=== PATIENT | female | born 1980 | race Caucasian/White ===

== ENCOUNTER 2021-01-05 09:00 | Outpatient (RCR) | payer BC, SELFPAY ==
[2020-12-14 13:20] VITALS: BMI 37.0
--- NOTE | 2020-12-14 13:49 | PC.NURSE ---
Patient is a 40 year old female who self referred to the [facility] program as she reports attending the program in 2018 and found it helpful. She is struggling with depression with passive SI, increased anxiety, and PTSD sxs. She reports she has low motivation at work and is unable to focus. She was recently disciplined at work regarding her performance. Patient does have a hx of trauma. She presents with depressed mood, blunted affect. Reports passive SI, denied plan or intent to harm of kill herself. Asked who she could call if she felt unsafe and patient stated her therapist, a friend, or crisis. Patient gave verbal permission to email her a cope of her safety plan. Patient medications reconciled with patient and patient's pharmacy. She reports she sometimes forgets to take her medications d/t symptoms. Educated patient on ways she can remember to take her medication and the possible mental and physical side effects from missing her medications. Patient also stated that she has 1-2 drinks weekly or every 2 weeks and the last time was last night when she drank 2 beers. Patient also reports that prior to Covid she would go to bars with her friends and binge drink on the weekends until she blacked out. She stated she is not going to drink while attending the program and she was educated about the effects of mixing ETOH with her medications and the effects on her mental health. Patient also aware that is she needed additional support she could access online substance use groups.
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
--- NOTE | 2020-12-19 14:50 | HO.PHPPROGNO ---
Subjective Subjective Date of Service: 12/21/20 Reason For Visit: depression Interim History: Pt continues to report symptoms of depression. She denies suicidal or homicidal ideation. She reports it has been about one month and she does not seem to get better. She also reports poor concentration. She does note that poor concentration is in setting of increased depression,although questions if she had underlying attention problems. She has been on fluvox for about 1.5 months. She is currently on Fluvox 150mg po qhs, wonders if it has been an effective medication or not. We discussed either increasing Ability or looking into d/c one of the antidepressants as it does not appear to be effective current combination of medication. I did caution pt about adding medications to avoid polypharmacy. Medication Compliance: Yes Side effects from medications: No Attending Groups: Yes Mental Status Exam Mental Status Exam Patient Appearance: Appropriate Patient Orientation: Person, Place, Time and Situation Level of Consciousness: Awake and Alert Patient Behavior: Talkative, Cooperative, Anxious, Fatigued and Good Eye Contact Mood Description: Depressed and Anxious Affect Description: Flat Patient Cognition Impaired: No Ability to Follow Directions: Good Speech Pattern: Spontaneous Speech Memory Description: Intact Diagnostics Vital Signs (24Hr): Body Mass Index 37.0 Assessment & Plan Assessment & Plan (1) Recurrent major depression: Status: Acute Code(s): F33.9 - Major depressive disorder, recurrent, unspecified Assessment and Plan: 1. discussed that pt has been on flov for more than one month at therapeutic dose and efficacy is limited. 2. Obtain collateral information from OP psychiatrist. (2) PTSD (post-traumatic stress disorder): Status: Acute Code(s): F43.10 - Post-traumatic stress disorder, unspecified Certification I certify that partial hospital treatment is medically necessary due to the symptoms and problems resulting from the patient's mental illness and the failure to treat the patient at the partial hospital level of care would likely result in the patient requiring inpatient psychiatric care which could not be prevented at a less intensive level of care. Greater than 50% of the session was spent on counseling and/or coordination of care Discharge Plan Discharge Attending provider: Thee Burton Medications: New aripiprazole [Abilify] 5 mg tablet 5 mg PO BEDTIME 15 Days Qty: 15 RF: 0 Discontinued aripiprazole 2 mg Tablet 2 mg PO DAILY RF: 0 No Action fluvoxamine [Luvox] 100 mg Tablet See Rx Instructions .ROUTE .COMPLEX RF: 0 bupropion HCl 300 mg Tablet Extended Release 24 Hr 300 mg PO QAM RF: 0
--- NOTE | 2020-12-22 15:10 | PC.NURSE ---
The client requested to meet to discuss her discharge date because she needs to let work know when she will return we discussed discharging the week of the . She continues to struggle with severe anxiety and difficulty completing daily tasks.
--- NOTE | 2020-12-29 16:55 | HO.PHPPROGNO ---
Subjective Subjective Date of Service: 12/30/20 Reason For Visit: depression Interim History: Juliane reports distracted feelings today and for the past few days. Focus is difficult. Reports she and partner met with her therapist this week in preparation for couples therapy- I don't want to repeat old patterns in this relationship. Reports Abilify increase is going well and asks for a refill which is sent. Denies SE except to report her left eye was twitching for a brief time today. Sleep is reported as WNL however last night she reports poor quality/minimal time for sleep. Appetite is usual -follows [facility] mindfulness program which is very effective for her. Denies SI plan intent. Reports SIBS on Saturday-scratching her arm-partner was very supportive and offered assistance to help pt turn this around she states. Discussed concerns about returning to work and her lack of focus-would like to trial a stimulant. Encouraged pt to work with OP team as she will need longer than one week for a well supervised trial. Discussed work giving her a final warning and not understanding she was symptomatic. Discussed offering a note to validate PHP attendance/work-encouraged processing in group to prepare and manage her responsibilities. Medication Compliance: Yes Side effects from medications: Yes (L eye twitching briefly today) Attending Groups: Yes Review of Systems Psychiatric: Reports anxiety and Reports depression Mental Status Exam Mental Status Exam Patient Orientation: Person, Place, Time and Situation Level of Consciousness: Awake and Alert Patient Behavior: Appropriate Mood Description: Depressed Affect Description: Flat Patient Cognition Impaired: No Ability to Follow Directions: Good Speech Pattern: Spontaneous Speech Memory Description: Intact Hallucinations: None Delusions: Not Present Thought Process: Intact Thought Content: positive for Intact and positive for Circumstantial Depressive Symptoms: Increased Anxiety and Thoughts of /Suicide (denies SI, plan or intent) Judgement: Good Diagnostics Vital Signs (24Hr): Body Mass Index 37.0 Assessment & Plan Assessment & Plan (1) PTSD (post-traumatic stress disorder): Status: Acute Code(s): F43.10 - Post-traumatic stress disorder, unspecified (2) Recurrent major depression: Status: Acute Code(s): F33.9 - Major depressive disorder, recurrent, unspecified Assessment and Plan: -Continue current plan of care. Certification I certify that partial hospital treatment is medically necessary due to the symptoms and problems resulting from the patient's mental illness and the failure to treat the patient at the partial hospital level of care would likely result in the patient requiring inpatient psychiatric care which could not be prevented at a less intensive level of care. Greater than 50% of the session was spent on counseling and/or coordination of care Discharge Plan Discharge Attending provider: Thee Burton Medications: Continued aripiprazole [Abilify] 5 mg tablet 5 mg PO BEDTIME 15 Days Qty: 15 RF: 1 Discontinued aripiprazole 2 mg Tablet 2 mg PO DAILY RF: 0 No Action fluvoxamine [Luvox] 100 mg Tablet See Rx Instructions .ROUTE .COMPLEX RF: 0 bupropion HCl 300 mg Tablet Extended Release 24 Hr 300 mg PO QAM RF: 0 Telehealth Telehealth Location of provider rendering services: practice address Location of patient: address on file Patient Identification confirmed using: Name, : Yes Telehealth method: video Patient verbally consented to treatment: Yes Patient verbally consented to billing insurance company: Yes Patient informed of any privacy concerns related to visit: Yes Time spent with patient (mins): 15
--- NOTE | 2021-01-05 12:11 | HO.PHPPROGNO ---
Subjective Subjective Date of Service: 01/10/21 Reason For Visit: depression Interim History: Juliane reports overall feeling less depressed, less overwhelmed. She denies SI/HI. She is somewhat anxious about returning to work next week, but otherwise feeling stable. She reports new relationship of about one month has been uplifting for her. She reports sleep and appetite is good. She is taking medications as prescribed. No Side effects noted or reported. Review of Systems Review of Systems Yes all other systems are reviewed and are negative Psychiatric: Reports anxiety and Reports depression Mental Status Exam Mental Status Exam Patient Appearance: Appropriate Patient Orientation: Person, Place, Time and Situation Level of Consciousness: Awake and Alert Patient Behavior: Appropriate Mood Description: Depressed Affect Description: Flat Patient Cognition Impaired: No Ability to Follow Directions: Good Speech Pattern: Spontaneous Speech Memory Description: Intact Diagnostics Vital Signs (24Hr): Body Mass Index 37.0 Assessment & Plan Assessment & Plan (1) PTSD (post-traumatic stress disorder): Status: Acute Code(s): F43.10 - Post-traumatic stress disorder, unspecified Assessment and Plan: continue current medications (2) Recurrent major depression: Status: Acute Code(s): F33.9 - Major depressive disorder, recurrent, unspecified Assessment and Plan: -Continue current plan of care. Certification I certify that partial hospital treatment is medically necessary due to the symptoms and problems resulting from the patient's mental illness and the failure to treat the patient at the partial hospital level of care would likely result in the patient requiring inpatient psychiatric care which could not be prevented at a less intensive level of care. Greater than 50% of the session was spent on counseling and/or coordination of care Discharge Plan Discharge Attending provider: Thee Burton Additional Instructions: Appointments with Hailey Delgado 01/10/21 Ana Laguna 01/25/21 DBT service net and attending [facility] Medications: Continued aripiprazole [Abilify] 5 mg tablet 5 mg PO BEDTIME 15 Days Qty: 15 RF: 1 Discontinued aripiprazole 2 mg Tablet 2 mg PO DAILY RF: 0 No Action fluvoxamine [Luvox] 100 mg Tablet See Rx Instructions .ROUTE .COMPLEX RF: 0 bupropion HCl 300 mg Tablet Extended Release 24 Hr 300 mg PO QAM RF: 0 Telehealth Telehealth Location of provider rendering services: practice address Location of patient: address on file Patient Identification confirmed using: Name, : Yes Telehealth method: video Patient verbally consented to treatment: Yes Patient verbally consented to billing insurance company: Yes Patient informed of any privacy concerns related to visit: Yes Time spent with patient (mins): 15
== END 2021-01-05 23:55 | disposition home or self-care (01) ==
LOC: HO.PHPA 09:00
PROVIDERS: Visit Provider Psychiatry & Neurology Psychiatry
DX: F33.9 Major depressive disorder, recurrent, unspecified (principal); F43.10 Post-traumatic stress disorder, unspecified; Z79.899 Other long term (current) drug therapy
CPT/HCPCS: 90791; 90853